=== PATIENT | male | born 1945 | race Caucasian/White ===

== ENCOUNTER 2025-07-11 22:26 | Inpatient (IN) | payer OTHER ==
[2025-07-12 00:04] VITALS: BMI 22.0
[2025-07-12] MEDS ORDERED: Senokot S 8.6-50 MG TAB PO PRN (00:36)
[2025-07-12] MEDS ORDERED: Calcium Carbonate 500 MG ChewTAB PO PRN (00:36)
[2025-07-12] MEDS ORDERED: Ondansetron PF 4 MG/2 ML Vial IVP PRN (00:36)
[2025-07-12] MEDS: guaiFENesin/Codeine 200 mg/20 mg 10 ml Cup PO SCH (01:00)
[2025-07-12] MEDS: Pantoprazole 40 MG VIAL IVP SCH (01:18)
[2025-07-12 02:07] LABS: Legionella Urinary Ag Negative (Negative); Strep pneumo Urine Ag NEGATIVE (NEGATIVE)
[2025-07-12 02:54] LABS: Influenza A by NAA Not Detected (NotDetected); Influenza B by NAA Not Detected (NotDetected); RSV by NAA Not Detected (NotDetected); SARS-CoV-2 NAA Rapid Test Not Detected (NotDetected)
[2025-07-12] MEDS: Guaifenesin DM 100-10/5 ML UDCUP PO PRN (03:20)
[2025-07-12 04:39] LABS: #Basophils Less than 0.03 10x3/uL (0.0-0.2); #Eosinophils 0.03 10x3/uL (0.0-0.7); #Monocytes 0.20 10x3/uL (0.11-0.59); #Neutrophils 9.78 10x3/uL (1.40-6.50); %Basophils 0.2 % (0.0-1.0); %Eosinophils 0.3 % (0.0-10.0); %Lymphocytes 5.3 % (21.0-51.0); %Monocytes 1.9 % (0.0-10.0); %Neutrophils 92.0 % (42.0-75.0); Hematocrit 30.7 % (42.0-52.0); Hemoglobin 9.6 g/dL (14.0-18.0); Mean Corpuscular Hemoglobin 25.0 pg (27.0-31.0); Mean Corpuscular Volume 79.9 fL (78.0-98.0); Platelet Count 462 10x3/uL (130-400); Red Blood Cell (RBC) Count 3.84 mill/uL (4.70-6.10); White Blood Cell (WBC) Count 10.62 10x3/uL (4.8-10.8)
[2025-07-12 04:55] LABS: Anion Gap 15 mmol/L (10-20); BUN (Urea Nitrogen) 9 mg/dL (8.4-25.7); Calc. Creatinine Clearance 82 mL/min (70-130); Calcium 8.1 mg/dL (7.8-10.44); Carbon Dioxide 16 mmol/L (23-31); Chloride 115 mmol/L (98-107); Glucose 134 mg/dL (83-110); Potassium 4.1 mmol/L (3.5-5.1); Sodium 142 mmol/L (136-145)
[2025-07-12 04:56] LABS: CRP, High Sensitivity at Bryan 5.27 mg/dL (< or = 0.5)
[2025-07-12] MEDS: Mometasone 200 MCG/Formoterol 5 MCG 120 PUFF INHALER INH SCH (06:44)
[2025-07-12] MEDS: predniSONE 20 MG TAB PO SCH (08:39)
[2025-07-12] MEDS: Lisinopril 10 MG TAB PO SCH (08:39)
[2025-07-12] MEDS: Benzonatate 100 MG CAP PO SCH (08:39)
[2025-07-12] MEDS: Pantoprazole 40 MG DR.TAB PO SCH (08:40)
[2025-07-12] MEDS: Enoxaparin 40 MG (0.4 mL) SYRINGE SC SCH (08:40)
[2025-07-12] MEDS ORDERED: PNEUMOC 20-VAL CONJ-DIP CRM/PF 0.5 ML SYRINGE IM ONE (09:00)
[2025-07-12] MEDS: Acetaminophen 325 MG TAB PO PRN (15:49)
[2025-07-12] MEDS: Azithromycin 500 MG in Sodium Chloride 0.9% 250 ML 250 ML IVPB SCH (21:55)
[2025-07-13 04:22] LABS: #Basophils Less than 0.03 10x3/uL (0.0-0.2); #Eosinophils Less than 0.03 10x3/uL (0.0-0.7); #Monocytes 0.52 10x3/uL (0.11-0.59); #Neutrophils 10.77 10x3/uL (1.40-6.50); %Basophils 0.2 % (0.0-1.0); %Eosinophils 0.0 % (0.0-10.0); %Lymphocytes 7.4 % (21.0-51.0); %Monocytes 4.2 % (0.0-10.0); %Neutrophils 88.0 % (42.0-75.0); Hematocrit 27.9 % (42.0-52.0); Hemoglobin 8.8 g/dL (14.0-18.0); Mean Corpuscular Hemoglobin 25.5 pg (27.0-31.0); Mean Corpuscular Volume 80.9 fL (78.0-98.0); Platelet Count 422 10x3/uL (130-400); Red Blood Cell (RBC) Count 3.45 mill/uL (4.70-6.10); White Blood Cell (WBC) Count 12.25 10x3/uL (4.8-10.8)
[2025-07-13 04:46] LABS: Anion Gap 10 mmol/L (10-20); BUN (Urea Nitrogen) 13 mg/dL (8.4-25.7); Calc. Creatinine Clearance 80 mL/min (70-130); Calcium 8.2 mg/dL (7.8-10.44); Carbon Dioxide 19 mmol/L (23-31); Chloride 118 mmol/L (98-107); Glucose 152 mg/dL (83-110); Potassium 4.2 mmol/L (3.5-5.1); Sodium 143 mmol/L (136-145)
[2025-07-13] MEDS ORDERED: Azithromycin 250 MG TAB PO SCH (15:00)
[2025-07-13 18:03] VITALS: BP 131/66; TEMP 98
== END 2025-07-13 19:24 | DRG 871 ==
LOC: UNDOADMIN 23:44 → T4-A 23:44 → EEVIPCON 23:44 → T4-A 07-12 00:36
PROVIDERS: ADMIT Internal Medicine; ATTEND Internal Medicine
DX: A41.9 Sepsis, unspecified organism (principal); J18.9 Pneumonia, unspecified organism; J44.1 Chronic obstructive pulmonary disease with (acute) exacerbation; J45.901 Unspecified asthma with (acute) exacerbation; E87.20 Acidosis, unspecified; I10 Essential (primary) hypertension; J45.909 Unspecified asthma, uncomplicated; M19.90 Unspecified osteoarthritis, unspecified site; D64.9 Anemia, unspecified; K21.9 Gastro-esophageal reflux disease without esophagitis; Z88.5 Allergy status to narcotic agent; Z87.11 Personal history of peptic ulcer disease; Z90.49 Acquired absence of other specified parts of digestive tract; Z98.890 Other specified postprocedural states; Z79.52 Long term (current) use of systemic steroids; Z79.899 Other long term (current) drug therapy
CPT/HCPCS: 36415; 71250; 80048; 83605; 83880; 84145; 85025; 86141; 87081; 87430; 87449; 87637; 87899; 94640; J0456; J0692; J1650; J2470; J2919; J7050; J7120; J7512